=== PATIENT | male | born 1965 | race Caucasian/White ===

== ENCOUNTER 2022-01-05 19:15 | Emergency (ER) | payer OTHER ==
[~2022-01-05 19:15] MED LIST: FLOMAX0.4 MG PO; NORCO 5-325 TA1 EACH PO; ZOFRAN4 MG PO
[2022-01-06] MEDS ORDERED: NORCO 5-325 TA1 EACH PO (01:40)
== END 2022-01-06 01:55 | disposition home or self-care (01) ==
LOC: FER 19:15
DX: S61.310A Laceration without foreign body of right index finger with damage to nail, initial encounter (principal); W27.0XXA Contact with workbench tool, initial encounter; Y92.009 Unspecified place in unspecified non-institutional (private) residence as the place of occurrence of the external cause
CPT/HCPCS: 73140; J2001